=== PATIENT | male | born 1970 | race Caucasian/White ===

== ENCOUNTER 2021-07-21 15:00 | Emergency (ER) | payer MEDICAID, OTHER ==
[~2021-07-21] VITALS: Ht 175.3 cm; Wt 85.0 kg
[2021-07-21 15:05] VITALS: BP 142/87
[2021-07-21 17:53] LABS: CHLORIDE 106 mEq/L (98-107)
== END 2021-07-21 19:04 | disposition home or self-care (01) ==
LOC: ER 15:00
DX: T88.1XXA Other complications following immunization, not elsewhere classified, initial encounter (principal); E11.65 Type 2 diabetes mellitus with hyperglycemia; I10 Essential (primary) hypertension
CPT/HCPCS: 36415; 80053; 84484; 93005; 99284